=== PATIENT | male | born 1950 | race Caucasian/White ===

== ENCOUNTER → 2018-08-26 | Outpatient (CLI) | payer OTHER ==
--- NOTE | 2018-08-31 05:51 | ECHO ---
DATE OF PROCEDURE: 08/26/2018 DATE OF : 1950 AGE: 68 REFERRING PROVIDER: Yuri Wooten MD PATIENT LOCATION: Outpatient REASON FOR ECHOCARDIOGRAM: Hypertensive heart disease. 2-D MEASUREMENTS: IVS: 0.8 cm LV: 5.0 cm LVPW: 0.9 cm LA: 3.9 cm Aorta: 3.4 cm IVC: 2.1 cm DOPPLER MEASUREMENTS: Peak velocity across the aortic valve: 1.2 m/s Peak velocity across the LVOT: 0.89 m/s Mitral E: 0.50, Mitral A: 0.47 with a ratio of 1.1 Maximum tricuspid valve velocity: 2.3 m/s 2-D COMMENTS: 1. Normal global left ventricular size, wall thickness but with a mildly depressed global left ventricular systolic function. The estimated left ventricular systolic ejection fraction is 45%. There was global hypokinesis. 2. Normal left atrium. Normal right atrium and right ventricle. 3. The atrial septum appeared to be normal without evidence of defect or shunt. 4. Normal aortic root. 5. No pericardial effusion seen. 6. Normal aortic valve. There appeared to be prolapse of the posterior mitral valve leaflet. Normal tricuspid valve and pulmonic valves. DOPPLER: It detects mild mitral regurgitation, mild tricuspid regurgitation, and trace pulmonic regurgitation. The calculated pulmonary artery systolic pressure is about 30 mmHg. Abnormal relaxation pattern was noted across the mitral valve annulus with a pseudonormal pattern, left ventricular end-diastolic pressure might be elevated. IMPRESSION: 1. Mildly depressed global left ventricular systolic function with mild global hypokinesis. There are some features of left ventricular diastolic dysfunction, grade 2. 2. Mild mitral regurgitation with probably prolapse of the posterior mitral valve leaflet. 3. Mild tricuspid regurgitation. 4. No prior study for comparison.
== END ==
LOC: M CARPUL 09:01
PROVIDERS: ATTEND Internal Medicine
DX: E87.6 Hypokalemia (principal); I08.1 Rheumatic disorders of both mitral and tricuspid valves

== ENCOUNTER → 2024-04-04 | Outpatient (REF) | payer OTHER | LOC: M LAB REF 08:24 | PROVIDERS: ATTEND Surgery | DX: L72.0 Epidermal cyst (principal) ==